=== PATIENT | male | born 1950 ===

== ENCOUNTER 2018-05-22 12:21 | Emergency (ER) | payer OTHER, MEDICARE, MEDICAID ==
[2018-05-22 12:22] VITALS: BMI 29.2
[2018-05-22] MEDS ORDERED: Tdap Vaccine 0.5 ml Vial (10-64 yrs) IM ONE ×2 (12:59→13:15)
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
[2018-05-22 15:04] VITALS: BP 141/66; PULSE 71; RESP 18; TEMP 97.1; O2SAT 100
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
--- NOTE | 2018-05-22 16:04 | RAD ---
Date of service: 05/22/2018 PROCEDURE: Cervical Spine Radiographs. HISTORY: Pain. COMPARISON: None available. FINDINGS: BONES: Alignment maintained. No fracture. Dens Intact. DISC SPACES: Mild multilevel cervical spondylosis appreciate inferior cervical spine. SOFT TISSUES: Normal. No prevertebral soft tissue swelling. OTHER FINDINGS: None. IMPRESSION: No fracture or spondylolisthesis appreciable. Mild multilevel inferior cervical spondylosis identified.
== END 2018-05-22 15:08 | disposition home or self-care (01) ==
LOC: MERGE 12:21 → H.ER 12:21
DX: S09.90XA Unspecified injury of head, initial encounter (principal); S50.311A Abrasion of right elbow, initial encounter; V03.10XA Pedestrian on foot injured in collision with car, pick-up truck or van in traffic accident, initial encounter; Y92.481 Parking lot as the place of occurrence of the external cause; E11.9 Type 2 diabetes mellitus without complications; E78.00 Pure hypercholesterolemia, unspecified; I10 Essential (primary) hypertension; Z79.4 Long term (current) use of insulin